=== PATIENT | female | born 1970 ===

== ENCOUNTER 2019-09-12 08:22 | Inpatient (IN) | payer OTHER ==
[~2019-09-12] VITALS: Ht 165.1 cm; Wt 72.1 kg
[2019-09-13] MEDS ORDERED: ZANTAC300 MG PO (07:46)
== END 2019-09-13 12:25 | disposition home or self-care (01) | DRG 621 ==
LOC: CIR.AMB 08:22 → SURH 12:24 → O/R 12:24 → SURH 14:59 → CIR.AMB 15:22 → SURH 09-13 12:25
PROVIDERS: ADMIT Plastic Surgery
PROC: 0HBV0ZZ Excision of Bilateral Breast, Open Approach (ICD-10-PCS; 2019-09-12)
PROC: 0J080ZZ Alteration of Abdomen Subcutaneous Tissue and Fascia, Open Approach (ICD-10-PCS; principal; 2019-09-12 09:45)
DX: E65 Localized adiposity (principal); M62.08 Separation of muscle (nontraumatic), other site; N62 Hypertrophy of breast; R63.4 Abnormal weight loss; E66.01 Morbid (severe) obesity due to excess calories